=== PATIENT | female | born 1980 | race Caucasian/White ===

== ENCOUNTER 2024-05-31 06:22 | Day surgery (SDC) | payer SELFPAY ==
[2024-05-31] MEDS: Lactated Ringers 1,000 ML IV SCH (07:05)
[2024-05-31] MEDS ORDERED: Midazolam 1 MG/ML 2 ML SDV ONE (07:17)
[2024-05-31] MEDS ORDERED: Propofol 200 MG/20 ML SDV ONE ×3 (07:17→07:55)
[2024-05-31] MEDS ORDERED: fentaNYL 100 MCG/2 ML SDV ONE (07:17)
[2024-05-31 09:25] VITALS: BP 104/61; PULSE 74
== END 2024-05-31 09:15 | disposition home or self-care (01) ==
LOC: JP.SDS 06:22
PROVIDERS: ATTEND Family Medicine
DX: D12.5 Benign neoplasm of sigmoid colon (principal); K62.1 Rectal polyp; K21.9 Gastro-esophageal reflux disease without esophagitis; Z88.7 Allergy status to serum and vaccine
CPT/HCPCS: 00813-QZ; 88305; J2250; J2704; J3010; J7120